=== PATIENT | female | born 1990 | race African-American/Black ===

== ENCOUNTER 2020-10-02 18:29 | Emergency (ER) | payer MEDICAID ==
[~2020-10-02] VITALS: Ht 165.1 cm; Wt 77.1 kg
[2020-10-02] MEDS ORDERED: methylPREDNISolone SOD SUCC 125 MG/2 ML VL IM ONE (21:00)
[2020-10-02] MEDS ORDERED: diphenhdrAMINE HCL 25 MG CAP PO ONE (21:45)
[2020-10-02 23:49] LABS: Basophils # (auto) 0.1 10 ^3/uL (0-0.2); Basophils % (auto) 1.4 % (0.0-2.0); Eosinophils # (auto) 0.3 10 ^3/uL (0-0.8); Eosinophils % (auto) 4.1 % (0.0-7.0); Hematocrit 39.5 % (36.0-46.0); Hemoglobin 13.7 g/dL (12.2-16.2); Lymphocytes # (auto) 2.2 10 ^3/uL (0.4-5.4); Lymphocytes % (auto) 33.3 % (10.0-50.0); Mean Corpuscular Hemoglobin 32.2 pg (28.0-32.0); Mean Corpuscular Hgb Conc. 34.7 g/dL (32.0-36.0); Mean Corpuscular Volume 92.8 fL (80.0-100.0); Monocytes # (auto) 0.2 10 ^3/uL (0-1.3); Monocytes % (auto) 3.6 % (0.0-12.0); Neutrophils # (auto) 3.8 10 ^3/uL (1.6-8.6); Neutrophils % (auto) 57.6 % (37.0-80.0); Platelet Count (auto) 314 10^3/uL (140-450); Red Blood Cells 4.26 10^6/uL (4.0-5.20); Red Cell Distribution Width 13.1 % (11.8-14.3); White Blood Cell 6.7 10^3/uL (4.4-10.8)
[2020-10-03] VITALS: BP 135/63
[2020-10-03 00:07] LABS: Alanine Aminotransferase 28 U/L (13-56); Anion Gap 8 (5-15); Aspartate Aminotransferase 15 U/L (15-37); BUN/Creatinine Ratio 9.2; Blood Urea Nitrogen 6 mg/dL (7-18); Calcium 8.7 mg/dL (8.5-10.1); Carbon Dioxide 22 mmol/L (21-32); Chloride 108 mmol/L (98-107); GFR African American 140 mL/min; GFR Non-African American 115 mL/min; Glucose 85 mg/dL (74-106); Potassium 3.8 mmol/L (3.5-5.1); Sodium 138 mmol/L (136-145)
[2020-10-03 00:12] LABS: Alkaline Phosphatase 89 U/L (45-117); Bilirubin, Total 0.3 mg/dL (0.2-1.0); Total Protein 8.1 g/dL (6.4-8.2)
== END 2020-10-03 00:56 | disposition home or self-care (01) ==
LOC: EDBD 18:29 → ER 18:29
DX: G51.0 Bell's palsy (principal); F17.210 Nicotine dependence, cigarettes, uncomplicated; Z63.8 Other specified problems related to primary support group; Z20.822 Contact with and (suspected) exposure to COVID-19
CPT/HCPCS: 36415; 71045; 80053; 84484; 85025; 87426; 93005; 96372; 99285; C9803; J2930; U0003

== ENCOUNTER 2021-12-23 08:09 | Emergency (ER) | payer MEDICAID ==
[~2021-12-23] VITALS: Ht 160 cm; Wt 77.1 kg
[2021-12-23] MEDS ORDERED: ACETAMINOPHEN 500 MG TAB PO ONE (08:15)
[2021-12-23] MEDS ORDERED: cefTRIAXone SOD 1,000 MG VL IM ONE (08:15)
[2021-12-23] MEDS ORDERED: LIDOCAINE 1% HCL (LOCAL ANESTH.) INJ 20ML MDV IJ ONE (08:15)
[2021-12-23] MEDS ORDERED: IBUP600T27 PO (08:29)
[2021-12-23] MEDS ORDERED: CEPH500C PO (08:29)
[2021-12-23 08:33] VITALS: BP 134/86
== END 2021-12-23 08:51 | disposition home or self-care (01) ==
LOC: ER 08:09
DX: S30.860A Insect bite (nonvenomous) of lower back and pelvis, initial encounter (principal); F17.210 Nicotine dependence, cigarettes, uncomplicated; Z79.1 Long term (current) use of non-steroidal anti-inflammatories (NSAID); Z79.899 Other long term (current) drug therapy; Z88.5 Allergy status to narcotic agent; W54.0XXA Bitten by dog, initial encounter; Y93.89 Activity, other specified; Y92.89 Other specified places as the place of occurrence of the external cause; Y99.8 Other external cause status
CPT/HCPCS: 96372; 99283; J0696

== ENCOUNTER 2022-09-29 13:52 | Observation (INO) | payer MEDICAID ==
[~2022-09-29] VITALS: Ht 165.1 cm; Wt 81.0 kg
[~2022-09-29 13:52] MED LIST: CEPH500C PO; IBUP600T27 PO
[2022-09-29 14:07] VITALS: BP 111/42
== END 2022-09-29 16:25 | disposition home or self-care (01) ==
LOC: ER 13:52 → LDRP 14:15
PROVIDERS: ADMIT Obstetrics & Gynecology; ATTEND Obstetrics & Gynecology
DX: O26.892 Other specified pregnancy related conditions, second trimester (principal); Z20.822 Contact with and (suspected) exposure to COVID-19; R10.9 Unspecified abdominal pain; O26.852 Spotting complicating pregnancy, second trimester; O99.332 Smoking (tobacco) complicating pregnancy, second trimester; F17.210 Nicotine dependence, cigarettes, uncomplicated; Z3A.22 22 weeks gestation of pregnancy; Z91.040 Latex allergy status
CPT/HCPCS: 36415; 59025; 76805; 81002; 87426; 94760; G0378

== ENCOUNTER 2023-06-16 06:44 | Emergency (ER) | payer MEDICAID ==
[~2023-06-16] VITALS: Ht 167.6 cm; Wt 79.0 kg
[~2023-06-16 06:44] MED LIST changes: +IBUP-1454 PO; -IBUP600T27 PO
[2023-06-16 07:19] LABS: Basophils # (auto) 0.1 10 ^3/uL (0-0.2); Basophils % (auto) 1.9 % (0.0-2.0); Eosinophils # (auto) 0.4 10 ^3/uL (0-0.8); Eosinophils % (auto) 6.8 % (0.0-7.0); Hematocrit 40.6 % (36.0-46.0); Hemoglobin 14.1 g/dL (12.2-16.2); Lymphocytes # (auto) 1.7 10 ^3/uL (0.4-5.4); Lymphocytes % (auto) 25.8 % (10.0-50.0); Mean Corpuscular Hemoglobin 32.5 pg (28.0-32.0); Mean Corpuscular Hgb Conc. 34.6 g/dL (32.0-36.0); Mean Corpuscular Volume 93.9 fL (80.0-100.0); Monocytes # (auto) 0.5 10 ^3/uL (0-1.3); Monocytes % (auto) 7.3 % (0.0-12.0); Neutrophils # (auto) 3.7 10 ^3/uL (1.6-8.6); Neutrophils % (auto) 58.2 % (37.0-80.0); Red Blood Cells 4.32 10^6/uL (4.0-5.20); Red Cell Distribution Width 13.3 % (11.8-14.3); White Blood Cell 6.4 10^3/uL (4.4-10.8)
[2023-06-16 07:30] VITALS: PULSE 85; RESP 16; O2SAT 98
[2023-06-16 07:39] LABS: Acetaminophen < 2.0 UG/ML (10.0-20.0); Alanine Aminotransferase 22 U/L (7-40); Alkaline Phosphatase 77 U/L (46-116); Anion Gap 10 (5-15); Calcium 9.6 mg/dL (8.7-10.4); Carbon Dioxide 24 mmol/L (20-30); Chloride 106 mmol/L (98-107); Glucose 95 mg/dL (74-106); Magnesium 1.7 mg/dL (1.6-2.6); Potassium 3.6 mmol/L (3.5-5.1); Sodium 140 mmol/L (136-145)
[2023-06-16 07:40] LABS: Albumin 4.6 g/dL (3.2-4.8); Aspartate Aminotransferase 32 U/L (13-40)
[2023-06-16 07:41] LABS: Bilirubin, Total 0.3 mg/dL (0.2-1.0); Total Protein 7.8 g/dL (5.7-8.2)
[2023-06-16 07:44] LABS: Salicylate < 3.0 mg/dL (2.8-20.0)
[2023-06-16 07:47] LABS: BUN/Creatinine Ratio 7.7 (10.0-20.0); Blood Urea Nitrogen < 5 mg/dL (9-23)
[2023-06-16 08:00] VITALS: TEMP 97.7
[2023-06-16 08:06] LABS: Urine Bacteria FEW /hpf (None Seen); Urine Blood Negative /uL (Negative); Urine Clarity Clear (Clear); Urine Protein, UAD Negative (Negative); Urine Specific Gravity 1.006 (1.001-1.035); Urine Urobilinogen Normal (Negative); Urine WBC 1 /hpf (0 - 5)
[2023-06-16 08:08] LABS: Urine Color Straw (Yellow)
[2023-06-16 08:17] LABS: Amphetamine Screen, Urine Neg (NEGATIVE)
[2023-06-16 08:18] LABS: Barbiturate Scree,Urine Neg (NEGATIVE); Benzodiazephine Screen, Urine Neg (NEGATIVE); Cannabinoid Screen, Urine Neg (NEGATIVE); Cocaine Screen, Urine Pos (NEGATIVE); Opiate Scree,Urine Neg (NEGATIVE); Phencyclidine Screen, Urine Neg (NEGATIVE)
[2023-06-16] MEDS ORDERED: SODIUM CHLORIDE 0.9% 1,000 ML IV ONE (11:00)
[2023-06-16 13:00] VITALS: BP 133/60; PULSE 74; RESP 16; O2SAT 97
== END 2023-06-16 13:54 | disposition home or self-care (01) ==
LOC: EDBD 06:44 → ER 06:44
DX: F14.10 Cocaine abuse, uncomplicated (principal); F17.210 Nicotine dependence, cigarettes, uncomplicated
CPT/HCPCS: 36415; 80053; 80307; 80320; 80329; 81001; 83735; 84484; 85025; 93005; 96360; 99285; J7030

== ENCOUNTER 2023-11-05 06:56 | Emergency (ER) | payer MEDICAID ==
[~2023-11-05] VITALS: Ht 162.6 cm; Wt 71.8 kg
[2023-11-05 07:43] LABS: Basophils # (auto) 0.1 10 ^3/uL (0-0.2); Basophils % (auto) 2.3 % (0.0-2.0); Eosinophils # (auto) 0.2 10 ^3/uL (0-0.8); Eosinophils % (auto) 3.4 % (0.0-7.0); Hematocrit 44.8 % (36.0-46.0); Hemoglobin 15.2 g/dL (12.2-16.2); Lymphocytes # (auto) 2.7 10 ^3/uL (0.4-5.4); Mean Corpuscular Hemoglobin 31.2 pg (28.0-32.0); Mean Corpuscular Hgb Conc. 33.9 g/dL (32.0-36.0); Mean Corpuscular Volume 92.2 fL (80.0-100.0); Monocytes # (auto) 0.3 10 ^3/uL (0-1.3); Monocytes % (auto) 6.4 % (0.0-12.0); Neutrophils # (auto) 1.5 10 ^3/uL (1.6-8.6); Neutrophils % (auto) 30.9 % (37.0-80.0); Red Blood Cells 4.85 10^6/uL (4.0-5.20); Red Cell Distribution Width 13.1 % (11.8-14.3); White Blood Cell 4.7 10^3/uL (4.4-10.8)
[2023-11-05 07:55] LABS: Chloride 107 mmol/L (98-107); Potassium 3.8 mmol/L (3.5-5.1); Sodium 139 mmol/L (136-145)
[2023-11-05 07:56] LABS: Anion Gap 8 (5-15); Calcium 9.7 mg/dL (8.5-10.1); Carbon Dioxide 24 mmol/L (20-30)
[2023-11-05 08:01] LABS: Glucose 96 mg/dL (74-106)
[2023-11-05 08:17] LABS: BUN/Creatinine Ratio 7.2 (10.0-20.0); Blood Urea Nitrogen < 5 mg/dL (9-23)
[2023-11-05 08:41] LABS: Urine Bacteria FEW /hpf (None Seen); Urine Blood 1+ /uL (Negative); Urine Clarity Clear (Clear); Urine Color Yellow (Yellow); Urine Hyaline Cast FEW /lpf (0 - 2); Urine Mucus FEW (None Seen); Urine Protein, UAD Negative (Negative); Urine Specific Gravity 1.014 (1.001-1.035); Urine Urobilinogen Normal (Negative); Urine WBC 1 /hpf (0 - 5)
[2023-11-05 09:24] VITALS: BP 137/87; PULSE 87; RESP 17; TEMP 98.7; O2SAT 100
== END 2023-11-05 09:26 | disposition home or self-care (01) ==
LOC: ER 06:56
DX: F19.10 Other psychoactive substance abuse, uncomplicated (principal); F14.10 Cocaine abuse, uncomplicated; R06.02 Shortness of breath; M79.602 Pain in left arm; F17.210 Nicotine dependence, cigarettes, uncomplicated; Z88.2 Allergy status to sulfonamides
CPT/HCPCS: 36415; 71045; 80048; 81001; 85025; 85379

== ENCOUNTER 2024-01-20 08:30 | Emergency (ER) | payer MEDICAID ==
[~2024-01-20] VITALS: Ht 162.6 cm; Wt 72.2 kg
[2024-01-20 09:30] VITALS: BP 151/94; PULSE 74; RESP 16; TEMP 98; O2SAT 99
[2024-01-20] MEDS ORDERED: NAPR-746 PO (09:35)
== END 2024-01-20 09:45 | disposition home or self-care (01) ==
LOC: ER 08:30
DX: S63.611A Unspecified sprain of left index finger, initial encounter (principal); F17.210 Nicotine dependence, cigarettes, uncomplicated; F14.10 Cocaine abuse, uncomplicated; Z88.2 Allergy status to sulfonamides; W20.8XXA Other cause of strike by thrown, projected or falling object, initial encounter; Y93.89 Activity, other specified; Y92.89 Other specified places as the place of occurrence of the external cause; Y99.8 Other external cause status
CPT/HCPCS: 29130; 73130

== ENCOUNTER 2024-05-09 13:59 | Emergency (ER) | payer MEDICAID ==
[~2024-05-09] VITALS: Ht 172.7 cm; Wt 73.0 kg
[~2024-05-09 13:59] MED LIST changes: +NAPR-746 PO
[2024-05-09] MEDS: SODIUM CHLORIDE 0.9% 1,000 ML IV ONE (15:34)
[2024-05-09] MEDS: ONDANSETRON HCL 4 MG/2 ML VIAL IM ONE (15:34)
[2024-05-09 16:04] LABS: Basophils # (auto) 0.1 10 ^3/uL (0-0.2); Eosinophils # (auto) 0.2 10 ^3/uL (0-0.8); Eosinophils % (auto) 2.3 % (0.0-7.0); Hematocrit 39.9 % (36.0-46.0); Hemoglobin 14.5 g/dL (12.2-16.2); Lymphocytes # (auto) 2.4 10 ^3/uL (0.4-5.4); Lymphocytes % (auto) 33.2 % (10.0-50.0); Mean Corpuscular Hemoglobin 36.5 pg (28.0-32.0); Mean Corpuscular Hgb Conc. 36.3 g/dL (32.0-36.0); Mean Corpuscular Volume 100.4 fL (80.0-100.0); Monocytes # (auto) 0.5 10 ^3/uL (0-1.3); Monocytes % (auto) 6.4 % (0.0-12.0); Neutrophils # (auto) 4.1 10 ^3/uL (1.6-8.6); Neutrophils % (auto) 56.1 % (37.0-80.0); Nucleated Red Blood Cells % 0.1 %; Platelet Count (auto) 290 10^3/uL (140-450); Red Blood Cells 3.97 10^6/uL (4.0-5.20); Red Cell Distribution Width 13.1 % (11.8-14.3); White Blood Cell 7.3 10^3/uL (4.4-10.8)
[2024-05-09 16:05] LABS: Chloride 108 mmol/L (98-107); Sodium 140 mmol/L (136-145)
[2024-05-09 16:06] LABS: Anion Gap 10 (5-15); Calcium 8.6 mg/dL (8.7-10.4); Carbon Dioxide 22 mmol/L (20-30)
[2024-05-09] MEDS: PROMETHAZINE W/CODEINE 5 ML ORAL SYRUP PO ONE (16:08)
[2024-05-09] MEDS: cefTRIAXone SOD 1,000 MG VL IM ONE (16:08)
[2024-05-09 16:11] LABS: Glucose 86 mg/dL (74-106)
[2024-05-09 16:14] LABS: BUN/Creatinine Ratio 8.5 (10.0-20.0); Blood Urea Nitrogen < 5 mg/dL (9-23)
[2024-05-09] MEDS ORDERED: IBUP-1455 PO (17:03)
[2024-05-09] MEDS ORDERED: POTA-180 PO (17:03)
[2024-05-09] MEDS ORDERED: AUG875T PO (17:03)
[2024-05-09] MEDS ORDERED: ONDA-155 PO (17:03)
[2024-05-09] MEDS ORDERED: GUAI1SOL3 PO (17:03)
[2024-05-09] MEDS ORDERED: PROM1SOL4 PO (17:05)
[2024-05-09 17:07] VITALS: BP 139/81; PULSE 82; RESP 20; TEMP 97.5; O2SAT 99
== END 2024-05-09 17:08 | disposition home or self-care (01) ==
LOC: ER 13:59 → EDBD 13:59 → ER 17:08
DX: B34.9 Viral infection, unspecified (principal); E87.6 Hypokalemia; R05.9 Cough, unspecified; R11.2 Nausea with vomiting, unspecified; F17.210 Nicotine dependence, cigarettes, uncomplicated; F15.90 Other stimulant use, unspecified, uncomplicated; Z98.890 Other specified postprocedural states
CPT/HCPCS: 36415; 71046; 80048; 85025; 96360; 96372; 99284; J0696; J2405; J7030

== ENCOUNTER 2024-07-28 18:42 | Emergency (ER) | payer MEDICAID ==
[~2024-07-28] VITALS: Ht 165.1 cm; Wt 70.5 kg
[~2024-07-28 18:42] MED LIST changes: +AUG875T PO; +IBUP-1455 PO; +ONDA-155 PO; +POTA-180 PO; +PROM1SOL4 PO
--- NOTE | 2024-07-28 20:14 | ED.PDOC ---
History of Present Illness HPI Comments 33-year-old female who came to headaches. Patient states he has been having occipital headaches for a week. States there is an abscess at her occipital area, that causes her headaches, with noted facial swelling as well. Also complaining of on and off fever, dizziness, and near syncopal attacks. Patient admits to drink alcohol, and has taken cocaine 3 days ago. Chief Complaint: Headache Time Seen by MD: 20:14 Primary Care Provider: unknown Reviewed Notes: Nurses Notes Allergies: Coded Allergies: Sulfa Antibiotics (Verified Allergy, Unknown, 11/05/23) Uncoded Allergies: CODIENE (Adverse Reaction, Intermediate, GI UPSET AND HIVES, 08/16/11) Home Meds Active Scripts Promethazine-Dm (Promethazine Dm 6.25-15 mg/5Ml) 1 Tia Tia, 5 ML PO TID for 10 Days, #150 ML 0 Refills Prov:TE WHEELER NP 05/09/24 Ibuprofen Micronized (Ibuprofen) 800 Mg Tab, 800 MG PO TID for 10 Days, #30 TAB 0 Refills Prov:TE WHEELER NP 05/09/24 Ondansetron HCl (Ondansetron) 4 Mg Tab, 4 MG PO Q8HPRN PRN for 5 Days, #15 TAB 0 Refills Prov:TE WHEELER NP 05/09/24 Amoxicillin & Pot Clavulanate (AUGMENTIN TABLET) 875 Mg Tb, 875 MG PO BID for 7 Days, #14 TAB 0 Refills Prov:TE WHEELER NP 05/09/24 Potassium Chloride (Potassium Chloride ER) 20 Meq Tab, 20 MEQ PO DAILY for 5 Days, #5 TAB 0 Refills Prov:TE WHEELER NP 05/09/24 Naproxen (Naproxen) 500 Mg Tab, 500 MG PO BID, #30 TAB Prov:PRAMOD PEPE 01/20/24 Ibuprofen (Ibuprofen) 600 Mg Tab, 600 MG PO TID, #30 TAB Prov:PRAMOD PEPE 12/23/21 Cephalexin Monohydrate (Cephalexin) 500 Mg Cap, 500 MG PO QID for 10 Days, #40 CAP Prov:PRAMOD PEPE 12/23/21 Information Source: Patient Mode of Arrival: Ambulatory Severity: Moderate Timing: Days Duration: Since onset Prehospital treatment: None Past Medical History PAST MEDICAL HISTORY: Denies 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 Family History Family History: Reviewed,noncontributory to illness Social History Smoker: Cigarettes, Less Than 1 Pack/Day Alcohol: Occasionally Drugs: Cocaine Lives In: Home Constitutional: reports: fever; denies: chills, diaphoresis, fatigue, malaise, sweats, weakness, others EENTM: denies: blurred vision, double vision, ear bleeding, ear discharge, ear drainage, ear pain, ear ringing, eye pain, eye redness, hearing loss, mouth pain, mouth swelling, nasal discharge, nose bleeding, nose congestion, nose pain, photophobia, tearing, throat pain, throat swelling, voice changes, others Respiratory: denies: cough, hemoptysis, orthopnea, SOB at rest, shortness of breath, SOB with excertion, stridor, wheezing, others Cardiovascular: denies: chest pain, dizzy spells, diaphoresis, Dyspnea on exertion, edema, irregular heart beat, left arm pain, lightheadedness, palpitations, PND, syncope, others Gastrointestinal: denies: abdomen distended, abdominal pain, blood streaked bowels, constipated, diarrhea, dysphagia, difficulty swallowing, hematemesis, melena, nausea, poor appetite, poor fluid intake, rectal bleeding, rectal pain, vomiting, others Genitourinary: denies: abnormal vagina bleeding, burning, dyspareunia, dysuria, flank pain, frequency, hematuria, incontinence, pain, , vagina discharge, urgency, others Neurological: reports: dizziness, fainting, headache; denies: left sided numbness, left sided weakness, numbness, paresthesia, pre-existing deficit, right sided numbness, right sided weakness, seizure, speech problems, tingling, tremors, weakness, others Musculoskeletal: denies: back pain, gout, joint pain, joint swelling, muscle pain, muscle stiffness, neck pain, others Integumetry: denies: bruises, change in color, change in hair/nails, dryness, laceration, lesions, lumps, rash, wounds, others Allergic/Immunocompromised: denies: Difficulty Healing, Frequent Infections, Hives, Itching, others Hematologic/Lymphatic: denies: anemia, blood clots, easy bleeding, easy bruising, swollen glands, others Endocrine: denies: excessive hunger, excessive sweating, excessive thirst, excessive urination, flushing, intolerance to cold, intolerance to heat, unexplained weight gain, unexplained weight loss, others Psychiatric: denies: anxiety, bipolar disorder, depression, hopeless, panic disorder, schizophrenia, sleepless, suicidal, others Physical Exam General Appearance: No Apparent Distress, Normal HEENT: Normal ENT Inspection, Pharynx Normal, TMs Normal, Other (Abscess occipital area) Neck: Full Range of Motion, Non-Tender, Normal, Normal Inspection Respiratory: Chest Non-Tender, Lungs Clear, No Accessory Muscle Use, No Respiratory Distress, Normal Breath Sounds Cardiovascular: No Edema, No JVD, No Murmur, No Gallop, Normal Peripheral Pulses, Regular Rate/Rhythm Breast Exam: Deferred Gastrointestinal: No Organomegaly, Non Tender, No Pulsatile Mass, Normal Bowel Sounds, Soft Genitalia: Deferred Pelvic: Deferred Rectal: Deferred Extremities: No calf tenderness, Normal capillary refill, Normal inspection, Normal range of motion, Non-tender, No pedal edema Musculoskeletal : Apperance: Normal Neurologic: Alert, elevator service mechanic II-XII nml as Tested, No Motor Deficits, Normal Affect, Normal Mood, No Sensory Deficits Cerebellar Function: Normal Reflexes: Normal Skin: Dry, Normal Color, Warm Lymphatic: No Adenopathy Was a procedure done? Was a procedure done?: Yes Sedation Sedation?: No Incision and Drainage Incision and Drainage: Abscess Location Posterior scalp Anesthetic: Lidocaine with Epi Preparation: Betadine Incision and Wound: Pus, Amount (20ml) Informed consent obtained: Yes Risks/benefits/alt described: Yes Differential Dx Considerations may include: Abscess, migraine headaches, sinusitis X-Ray, Labs, Meds, VS Vital Signs Date Time Temp Pulse Resp B/P (MAP) Pulse Ox O2 Delivery O2 Flow Rate FiO2 07/28/24 21:31 Room Air* 0 21 07/28/24 21:28 98.7 74 18 152/96 (114) 99 98.7 07/28/24 19:35 98.3 93 17 152/108 (123) 98 Lab Test 07/28/24 20:23 Range/Units White Blood Count 8.1 4.4-10.8 10^3/uL Red Blood Count 4.47 4.0-5.20 10^6/uL Hemoglobin 14.8 12.2-16.2 g/dL Hematocrit 42.8 36.0-46.0 % Mean Corpuscular Volume 95.7 80.0-100.0 fL Mean Corpuscular Hemoglobin 33.2 H 28.0-32.0 pg Mean Corpuscular Hemoglobin Concent 34.7 32.0-36.0 g/dL Red Cell Distribution Width 13.3 11.8-14.3 % Platelet Count 310 140-450 10^3/uL Mean Platelet Volume 8.1 6.9-10.8 fL Neutrophils (%) (Auto) 59.5 37.0-80.0 % Lymphocytes (%) (Auto) 29.0 10.0-50.0 % Monocytes (%) (Auto) 7.5 0.0-12.0 % Eosinophils (%) (Auto) 2.9 0.0-7.0 % Basophils (%) (Auto) 1.1 0.0-2.0 % Neutrophils # (Auto) 4.9 1.6-8.6 10 ^3/uL Lymphocytes # (Auto) 2.4 0.4-5.4 10 ^3/uL Monocytes # (Auto) 0.6 0-1.3 10 ^3/uL Eosinophils # (Auto) 0.2 0-0.8 10 ^3/uL Basophils # (Auto) 0.1 0-0.2 10 ^3/uL Nucleated Red Blood Cells 0.1 % Sodium Level 137 136-145 mmol/L Potassium Level 3.3 L 3.5-5.1 mmol/L Chloride Level 103 98-107 mmol/L Carbon Dioxide Level 29 20-31 mmol/L Anion Gap 5 5-15 Blood Urea Nitrogen < 5 L 9-23 mg/dL Creatinine 0.67 0.550-1.02 mg/dL Glomerular Filtration Rate Calc 119 >90 mL/min BUN/Creatinine Ratio 7.5 L 10.0-20.0 Serum Glucose 96 74-106 mg/dL Calcium Level 9.6 8.7-10.4 mg/dL Current Medications Medications (Trade) Dose Ordered Sig/Eulalio Route Start Time Stop Time Status Last Admin Sodium Chloride 1,000 ml @ 1,000 mls/hr Q1H ONCE IV 07/28/24 20:15 07/28/24 21:14 DC 07/28/24 21:44 Metoclopramide HCl (Reglan Injection) 10 mg ONCE ONCE IV 07/28/24 20:15 07/28/24 20:16 DC 07/28/24 21:50 Ketorolac Tromethamine (Toradol Injection) 15 mg ONCE ONCE IV 07/28/24 20:15 07/28/24 20:16 DC 07/28/24 21:50 Lidocaine/ Epinephrine (Xylocaine-Mpf/ Epinephrine 1.5 %-1:[id number]) 10 ml ONCE ONCE IJ 07/28/24 23:30 07/28/24 23:31 DC 07/28/24 23:40 Time of 1ST Reevaluation: 20:10 Reevaluation 1ST: Unchanged Patient Education/Counseling: Diagnosis, Treatment Family Education/Counseling: No Family Present Departure 1 Departure Time of Disposition: 23:53 (Patient had an abscess to her head. it was drained in the er and will have her follow up with her regular doctor.) Impression: Primary Impression: Scalp abscess Disposition: HOME / SELF CARE / HOMELESS Condition: Stable Additional Instructions: You had an abscess drained in the ER. It is important to follow up with your regular doctor next week to ensure you are healing well. If your symptoms worsen or you have any other concerns then please return to the ER. Discharged With: Self Critical Care Note Critical Care Time?: No Stability Stability form required: No Heart Score Heart Score: Heart Score Response (Comments) Value History N/A 0 EKG N/A 0 Age N/A 0 Risk Factors N/A 0 Troponin N/A 0 Total 0 I personally scribed for OBI GREENFIELD MD ([email or web address]) on 07/28/24 at 20:14. Electronically submitted by Yonatan Beverly ([email or web address]). OBI GREENFIELD MD Jul 28, 2024 20:14
[2024-07-28 20:51] LABS: Chloride 103 mmol/L (98-107); Potassium 3.3 mmol/L (3.5-5.1); Sodium 137 mmol/L (136-145)
[2024-07-28 20:52] LABS: Anion Gap 5 (5-15); Carbon Dioxide 29 mmol/L (20-31)
[2024-07-28 20:53] LABS: Calcium 9.6 mg/dL (8.7-10.4)
[2024-07-28 20:54] LABS: Basophils # (auto) 0.1 10 ^3/uL (0-0.2); Basophils % (auto) 1.1 % (0.0-2.0); Eosinophils # (auto) 0.2 10 ^3/uL (0-0.8); Eosinophils % (auto) 2.9 % (0.0-7.0); Hematocrit 42.8 % (36.0-46.0); Hemoglobin 14.8 g/dL (12.2-16.2); Lymphocytes # (auto) 2.4 10 ^3/uL (0.4-5.4); Mean Corpuscular Hemoglobin 33.2 pg (28.0-32.0); Mean Corpuscular Hgb Conc. 34.7 g/dL (32.0-36.0); Mean Corpuscular Volume 95.7 fL (80.0-100.0); Monocytes # (auto) 0.6 10 ^3/uL (0-1.3); Monocytes % (auto) 7.5 % (0.0-12.0); Neutrophils # (auto) 4.9 10 ^3/uL (1.6-8.6); Neutrophils % (auto) 59.5 % (37.0-80.0); Nucleated Red Blood Cells % 0.1 %; Platelet Count (auto) 310 10^3/uL (140-450); Red Blood Cells 4.47 10^6/uL (4.0-5.20); Red Cell Distribution Width 13.3 % (11.8-14.3); White Blood Cell 8.1 10^3/uL (4.4-10.8)
[2024-07-28 20:57] LABS: Glucose 96 mg/dL (74-106)
[2024-07-28 21:25] LABS: BUN/Creatinine Ratio 7.5 (10.0-20.0); Blood Urea Nitrogen < 5 mg/dL (9-23)
[2024-07-28 21:28] VITALS: BP 152/96; PULSE 74; RESP 18; TEMP 98.7; O2SAT 99
[2024-07-28] MEDS: SODIUM CHLORIDE 0.9% 1,000 ML IV ONE (21:44)
[2024-07-28] MEDS: KETOROLAC TROMETH 30 MG/ML 1ML VIAL IV ONE (21:50)
[2024-07-28] MEDS: METOCLOPRAMIDE HCL 5MG/ml INJ 2ml VIAL IV ONE (21:50)
[2024-07-28] MEDS ORDERED: LIDOCAINE W/ EPINEPHRINE 1.5 % INJ 5ML AMP IJ ONE (23:00)
[2024-07-28] MEDS: NALOXONE HCL 0.4 MG/ML VIAL IV ONE (23:40)
[2024-07-28] MEDS: ePHEDrine SULFATE 50 MG/ML AMP IV ONE (23:40)
[2024-07-28] MEDS: Lidocaine W-Epinephrine 1.5%-1:200,000 INJ 10ml Vial IJ ONE (23:40)
== END 2024-07-29 00:02 | disposition home or self-care (01) ==
LOC: ER 18:42
DX: L02.811 Cutaneous abscess of head [any part, except face] (principal); F17.210 Nicotine dependence, cigarettes, uncomplicated; F14.90 Cocaine use, unspecified, uncomplicated; Z98.890 Other specified postprocedural states; Z88.2 Allergy status to sulfonamides; Z79.1 Long term (current) use of non-steroidal anti-inflammatories (NSAID); Z79.899 Other long term (current) drug therapy
CPT/HCPCS: 10060; 36415; 80048; 85025; 96361; 96374; 96375; 99284; J1885; J2765; J7030

== ENCOUNTER 2025-08-25 09:02 | Emergency (ER) | payer MEDICAID ==
[~2025-08-25] VITALS: Ht 160 cm; Wt 65.8 kg
[2025-08-25 09:04] VITALS: BP 117/84; PULSE 79; RESP 15; TEMP 98.1; O2SAT 99
--- NOTE | 2025-08-25 09:11 | ED.PDOC ---
History of Present Illness HPI Comments 34 y/o F, presents to the ED for CC of tooth pain. Chief Complaint: Tooth Pain Time Seen by MD: 09:00 Primary Care Provider: unknown Reviewed Notes: Nurses Notes, Medications, Allergies Allergies: Coded Allergies: Sulfa Antibiotics (Verified Allergy, Unknown, 11/05/23) Uncoded Allergies: CODIENE (Adverse Reaction, Intermediate, GI UPSET AND HIVES, 08/16/11) Home Meds Active Scripts Promethazine-Dm (Promethazine Dm 6.25-15 mg/5Ml) 1 Tia Tia, 5 ML PO TID for 10 Days, #150 ML 0 Refills Prov:SUMMERTE ELIAS HARVEST MANAGER 05/09/24 Ibuprofen Micronized (Ibuprofen) 800 Mg Tab, 800 MG PO TID for 10 Days, #30 TAB 0 Refills Prov:SUMMERANNMARIE ELIASVal Sutton HARVEST MANAGER 05/09/24 Ondansetron HCl (Ondansetron) 4 Mg Tab, 4 MG PO Q8HPRN PRN for 5 Days, #15 TAB 0 Refills Prov:SUMMERANNMARIE ELIASO Lesley HARVEST MANAGER 05/09/24 Amoxicillin & Pot Clavulanate (AUGMENTIN TABLET) 875 Mg Tb, 875 MG PO BID for 7 Days, #14 TAB 0 Refills Prov:SUMMERTE ELIAS HARVEST MANAGER 05/09/24 Potassium Chloride (Potassium Chloride ER) 20 Meq Tab, 20 MEQ PO DAILY for 5 Days, #5 TAB 0 Refills Prov:TE WHEELER HARVEST MANAGER 05/09/24 Naproxen (Naproxen) 500 Mg Tab, 500 MG PO BID, #30 TAB Prov:PRAMOD PEPE 01/20/24 Ibuprofen (Ibuprofen) 600 Mg Tab, 600 MG PO TID, #30 TAB Prov:PRAMOD PEPE 12/23/21 Cephalexin Monohydrate (Cephalexin) 500 Mg Cap, 500 MG PO QID for 10 Days, #40 CAP Prov:PRAMOD PEPE 12/23/21 Information Source: Patient Mode of Arrival: Ambulatory Severity: Moderate Timing: Days Duration: Since onset Prehospital treatment: None Past Medical History PAST MEDICAL HISTORY: Denies 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 Family History Family History: Reviewed,noncontributory to illness Social History Smoker: Cigarettes, Less Than 1 Pack/Day Alcohol: Occasionally Drugs: Cocaine Lives In: Home Constitutional: denies: chills, diaphoresis, fatigue, fever, malaise, sweats, weakness, others EENTM: denies: blurred vision, double vision, ear bleeding, ear discharge, ear drainage, ear pain, ear ringing, eye pain, eye redness, hearing loss, mouth pain, mouth swelling, nasal discharge, nose bleeding, nose congestion, nose pain, photophobia, tearing, throat pain, throat swelling, voice changes, others Respiratory: denies: cough, hemoptysis, orthopnea, SOB at rest, shortness of breath, SOB with excertion, stridor, wheezing, others Cardiovascular: denies: chest pain, dizzy spells, diaphoresis, Dyspnea on exertion, edema, irregular heart beat, left arm pain, lightheadedness, palpitations, PND, syncope, others Gastrointestinal: denies: abdomen distended, abdominal pain, blood streaked bowels, constipated, diarrhea, dysphagia, difficulty swallowing, hematemesis, melena, nausea, poor appetite, poor fluid intake, rectal bleeding, rectal pain, vomiting, others Genitourinary: denies: abnormal vagina bleeding, burning, dyspareunia, dysuria, flank pain, frequency, hematuria, incontinence, pain, , vagina discharge, urgency, others Neurological: denies: dizziness, fainting, headache, left sided numbness, left sided weakness, numbness, paresthesia, pre-existing deficit, right sided numbness, right sided weakness, seizure, speech problems, tingling, tremors, weakness, others Musculoskeletal: denies: back pain, gout, joint pain, joint swelling, muscle pain, muscle stiffness, neck pain, others Integumetry: denies: bruises, change in color, change in hair/nails, dryness, laceration, lesions, lumps, rash, wounds, others Allergic/Immunocompromised: denies: Difficulty Healing, Frequent Infections, Hives, Itching, others Hematologic/Lymphatic: denies: anemia, blood clots, easy bleeding, easy bruising, swollen glands, others Endocrine: denies: excessive hunger, excessive sweating, excessive thirst, excessive urination, flushing, intolerance to cold, intolerance to heat, unexplained weight gain, unexplained weight loss, others Psychiatric: denies: anxiety, bipolar disorder, depression, hopeless, panic disorder, schizophrenia, sleepless, suicidal, others All Other Systems: Reviewed and Negative Physical Exam General Appearance: No Apparent Distress, Normal HEENT: Normal ENT Inspection, Pharynx Normal Neck: Full Range of Motion, Non-Tender, Normal, Normal Inspection Respiratory: Chest Non-Tender, Lungs Clear, No Accessory Muscle Use, No Respiratory Distress, Normal Breath Sounds Cardiovascular: No Edema, No Murmur, No Gallop, Normal Peripheral Pulses, Regular Rate/Rhythm Breast Exam: Deferred Gastrointestinal: No Organomegaly, Non Tender, No Pulsatile Mass, Normal Bowel Sounds, Soft Genitalia: Deferred Pelvic: Deferred Rectal: Deferred Extremities: No calf tenderness, Normal capillary refill, Normal inspection, Normal range of motion, Non-tender, No pedal edema Musculoskeletal : Apperance: Normal Neurologic: Alert, water valve mechanic II-XII nml as Tested, No Motor Deficits, Normal Affect, Normal Mood, No Sensory Deficits Cerebellar Function: Normal Reflexes: Normal Skin: Dry, Normal Color, Warm Lymphatic: No Adenopathy Was a procedure done? Was a procedure done?: No Differential Dx Considerations may include: dental abscess, dental caries X-Ray, Labs, Meds, VS Vital Signs Date Time Temp Pulse Resp B/P (MAP) Pulse Ox O2 Delivery O2 Flow Rate FiO2 08/25/25 09:04 98.1 79 15 117/84 99 98.1 Time of 1ST Reevaluation: 09:30 Reevaluation 1ST: Unchanged Patient Education/Counseling: Diagnosis, Treatment Family Education/Counseling: No Family Present SEPSIS Sepsis Screen Date sepsis recognized/suspect: Aug 25, 2025 Time Sepsis recognized/suspect: 904 Recent Procedure: No On Antibiotic Therapy: No Respiratory Rate >20: No Heart Rate >90: No Temp<36 C (96.8 F) or >38.3 C: No SBP <90 or MAP <65 mmHG: No New Acute Mental Status Change: No Is the patient on CPAP, BIPAP,: No Vital Signs Date Time Temp Pulse Resp B/P (MAP) Pulse Ox O2 Delivery O2 Flow Rate FiO2 08/25/25 09:04 98.1 79 15 117/84 99 98.1 Departure 1 Departure Time of Disposition: 09:42 (Patient has a dental infection. We will discharge patient home with outpatient follow up) Impression: Primary Impression: Tooth infection Disposition: 01 HOME / SELF CARE / HOMELESS Condition: Stable Additional Instructions: You have a tooth infection. You were prescribed antibiotics. Please take as directed. It is important to follow up with a dentist this week. For pain you can take the followinam: Ibuprofen 400mg with food Noon: Acetaminophen 1000mg 4pm: Ibuprofen 400mg with food 8pm: Acetaminophen 1000mg If your symptoms worsen or you have any other concerns then please return to the ER. e-Prescriptions Amoxicillin & Pot Clavulanate (AUGMENTIN TABLET) 875 Mg Tb 875 MG PO BID for 7 Days, #14 TAB Prov: OBI GREENFIELD MD 08/25/25 Discharged With: Self Critical Care Note Critical Care Time?: No Stability Stability form required: No Heart Score Heart Score: Heart Score Response (Comments) Value History N/A 0 EKG N/A 0 Age N/A 0 Risk Factors N/A 0 Troponin N/A 0 Total 0 I personally scribed for OBI GREENFIELD MD ([email or web address]) on 08/25/25 at 09:11. Electronically submitted by Angy Sanders ([email or web address]). OBI GREENFIELD MD Aug 25, 2025 09:11
[2025-08-25] MEDS ORDERED: AUG875T PO (09:44)
== END 2025-08-25 10:19 | disposition home or self-care (01) ==
LOC: ER 09:02
DX: K04.7 Periapical abscess without sinus (principal); F17.210 Nicotine dependence, cigarettes, uncomplicated; Z79.899 Other long term (current) drug therapy; Z88.2 Allergy status to sulfonamides